=== PATIENT | male | born 1970 | race Caucasian/White ===

== ENCOUNTER 2016-09-07 19:14 | Emergency (ER) | payer BC ==
[2016-09-07 19:35] VITALS: BP 156/93
--- NOTE | 2016-09-07 20:30 | EDM.PDOC ---
ED HPI GENERAL MEDICAL PROBLEM - General Chief Complaint: Skin Complaint Stated Complaint: RASH Time Seen by Provider: 09/07/16 20:14 Source of Information: Reports: Patient History Limitations: Reports: No Limitations - History of Present Illness INITIAL COMMENTS - FREE TEXT/NARRATIVE: 45-year-old male presents for evaluation and treatment of a rash to the right lower chest and upper abdomen. Patient reports that he first developed pain to this area about 1 week ago. Reports that he was concerned that he was experiencing gallbladder attacks. He states about 2 or 3 days ago he then developed a rash. Reports that the rash is very painful and describes as a burning sensation. He reports that at first he thought it was a spider bite as some of the areas blistered. He reports associated symptoms of fatigue, malaise , headaches and body aches. Patient had chickenpox as a child. He has never had shingles. Duration: Week(s): (1) Location: Reports: Abdomen Quality: Reports: Ache, Burning Right Pain Score (Numeric/FACES): 3 - Related Data Allergies Allergy/AdvReac Type Severity Reaction Status Date / Time pork derived (porcine) Allergy Diarrhea Verified 09/07/16 19:36 Home Meds: Home Meds FLUoxetine HCl [Fluoxetine HCl] 40 mg PO DAILY 09/20/15 [History] Omeprazole 1 cap PO DAILY 09/20/15 [History] Aspirin 81 mg PO DAILY #30 tab.chew 09/21/15 [Rx] Atorvastatin. 02/15/16 [History] Gabapentin [Neurontin] 100 mg PO TID #21 cap 09/07/16 [Rx] valACYclovir [Valtrex] 1,000 mg PO TID #21 tablet 09/07/16 [Rx] Past Medical History HEENT History: Reports: Impaired Vision Other HEENT History: Pt hard of hearing, wears hearing aids but are at home Cardiovascular History: Reports: High Cholesterol Other Cardiovascular History: Angioplasty Respiratory History: Reports: Pneumonia, Recurrent Other Respiratory History: pneumonia as a young child Genitourinary History: Reports: UTI, Recurrent Other Genitourinary History: Serious UTI in college Musculoskeletal History: Reports: Other (See Below) Other Musculoskeletal History: ankle surgery Neurological History: Reports: Concussion Psychiatric History: Reports: Aggressive/Hostile Behaviors - Infectious Disease History Infectious Disease History: Reports: Chicken Pox, Measles - Past Surgical History GI Surgical History: Reports: Hernia Repair/Other Social & Family History - Family History Family Medical History: Noncontributory Cardiac: Reports: [place] Other Cardiac Family History: mother had a [place], father with quadrupel bypass surgery Oncologic: Reports: Leukemia Other Oncologic Family History: father and grandpa, many cousins with cancer - Tobacco Use Smoking Status *Q: Never Smoker Years of Tobacco use: 40 Packs/Tins Daily: 0.5 Used Tobacco, but Quit: Yes Month Tobacco Last Used: March Second Hand Smoke Exposure: No - Caffeine Use Caffeine Use: Reports: Soda - Alcohol Use Days Per Week of Alcohol Use: 0 - Recreational Drug Use Recreational Drug Use: No - Living Situation & Occupation Living situation: Reports: Occupation: Employed ED ROS GENERAL - Review of Systems Review Of Systems: See Below Constitutional: Reports: Fever, Malaise, Fatigue, Other (reports body aches) GI/Abdominal: Reports: Abdominal Pain (right upper abdomen) Skin: Reports: Rash (burning, blistering rash to the right upper abdomen and right lower chest) Neurological: Reports: Headache ED EXAM, SKIN/RASH Exam: See Below Exam Limited By: No Limitations General Appearance: Alert, WD/WN, No Apparent Distress Respiratory/Chest: No Respiratory Distress, Lungs Clear Cardiovascular: Normal Peripheral Pulses, Regular Rate, Rhythm, No Murmur Neurological: Alert, Oriented, Normal Cognition Psychiatric: Normal Affect, Normal Mood Skin: Warm, Dry, Zoster-Like Rash (right upper abdomen and right lower chest extending to the right side; follows one dermatome, does not cross the midline; 1 area crusted over 3 over erythematous areas without blisters) Location, Skin: Chest, Abdomen Characteristics: Erythematous Associated features: Warmth, Tenderness, Crusting Course - Vital Signs Last Recorded V/S: Last Vital Signs Temp 37.0 C 09/07/16 19:28 Pulse 71 09/07/16 19:28 Resp 16 09/07/16 19:28 BP 156/93 H 09/07/16 19:28 Pulse Ox 97 09/07/16 19:28 - Re-Assessments/Exams Free Text/Narrative Re-Assessment/Exam: 09/07/16 20:20 The patient's rash and history are consistent with shingles. I will place the patient on Valtrex. Discussed pain management options. He does not want to take any narcotic pain medications. We will try him on a small dose of gabapentin to help with the pain. He can take Tylenol or Motrin as needed for additional pain relief. He is instructed to keep the shingles covered. They're technically contagious until they're crusted over. His father, who has cancer, lives next door. Instructed to be very careful about keeping covered when around him. Discharge instructions her document. Departure - Departure Time of Disposition: 20:24 Disposition: Home, Self-Care 01 Condition: Fair Clinical Impression: Shingles - Discharge Information Prescriptions: Gabapentin [Neurontin] 100 mg PO TID #21 cap valACYclovir [Valtrex] 1,000 mg PO TID #21 tablet Instructions: Shingles, [id number] Referrals: Samara Dickey PA-C [Primary Care Provider] - Forms: ED Department Discharge Additional Instructions: Valacyclovir 1 g 3 times a day for 7 days. This is the antiviral medication. Gabapentin 1 tab 3 times a day for 7 days. This medication is to help with the neuropathic pain. may take [id number] Tylenol or Motrin as needed for additional pain relief. Keep shingles covered. There contagious until they are crusted over. Follow-up with your primary care provider for a recheck in 7-10 days. Please return to the ER if your symptoms change or worsen.
== END 2016-09-07 20:55 | disposition home or self-care (01) ==
LOC: JD.ED 19:14
DX: B02.9 Zoster without complications (principal); E78.00 Pure hypercholesterolemia, unspecified; J18.9 Pneumonia, unspecified organism; Z98.890 Other specified postprocedural states; Z87.891 Personal history of nicotine dependence; Z79.899 Other long term (current) drug therapy; Z91.018 Allergy to other foods
CPT/HCPCS: 99283

== ENCOUNTER 2017-06-10 15:01 | Emergency (ER) | payer BC ==
[2017-06-10] MEDS ORDERED: Ketorolac 60 MG/2 ML SDV IM ONE (15:44)
[2017-06-10] MEDS ORDERED: HYDROmorphone 1 MG/ML Syringe IM ONE (15:44)
[2017-06-10] MEDS ORDERED: Cyclobenzaprine 10 MG Tab PO ONE (15:45)
[2017-06-10] MEDS ORDERED: HYDROmorphone 0.5 MG/0.5 ML SYRINGE ONE (16:07)
[2017-06-10] MEDS ORDERED: HYDROmorphone 0.5 MG/0.5 ML SYRINGE IM ONE (16:10)
--- NOTE | 2017-06-10 17:11 | CR ---
Lumbar spine: AP, lateral and coned-down lateral views centered to the lumbosacral junction were obtained. Comparison: Prior lumbar spine x-ray of 01/14/16. Minimal anterior wedging is noted of T12 and L1 which appears old and is likely developmental. Slight posterior disc space narrowing is noted at T11-T12 and T12-L1. Other disc spaces are preserved. Scattered mild endplate osteophytes are seen. Pedicles as well as transverse and spinous processes are intact. No subluxation or fracture is seen. Impression: 1. Minimal degenerative change. 2. Minimal anterior wedge deformity of T12 and L1 which is felt to be old and developmental. Diagnostic code #2
--- NOTE | 2017-06-10 17:19 | EDM.PDOC ---
ED HPI GENERAL MEDICAL PROBLEM - General Chief Complaint: Back Pain or Injury Stated Complaint: BACK PAIN Time Seen by Provider: 06/10/17 15:23 Source of Information: Reports: Patient History Limitations: Reports: No Limitations - History of Present Illness INITIAL COMMENTS - FREE TEXT/NARRATIVE: The patient presents with low back pain. This started about 1 week ago. He was loading his trailer maged on the back of his trailer when he stepped in a hole and hurt his back. 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 He drove home and came to the ER. He has no numbness or weakness. He has no bowel or bladder problems. He has not had much trouble with his back before. Onset: Sudden Duration: Day(s): Location: Reports: Back (Left side down his leg) Quality: Reports: Sharp Severity: Severe Improves with: Reports: Immobilization Worsens with: Reports: Movement Associated Symptoms: Reports: No Other Symptoms Back Pain Score (Numeric/FACES): 9 - Related Data Allergies Allergy/AdvReac Type Severity Reaction Status Date / Time pork derived (porcine) Allergy Diarrhea Verified 06/10/17 15:11 Home Meds: Home Meds FLUoxetine HCl [Fluoxetine HCl] 40 mg PO DAILY 09/20/15 [History] Omeprazole 1 cap PO DAILY 09/20/15 [History] Aspirin 81 mg PO DAILY #30 tab.chew 09/21/15 [Rx] Atorvastatin. 02/15/16 [History] Gabapentin [Neurontin] 100 mg PO TID #21 cap 09/07/16 [Rx] valACYclovir [Valtrex] 1,000 mg PO TID #21 tablet 09/07/16 [Rx] Cyclobenzaprine [Flexeril] 10 mg PO TID PRN #20 tab 06/10/17 [Rx] Hydrocodone/Acetaminophen [Hydrocodon-Acetaminophen 5-325] 1 - 2 each PO Q6HR PRN #20 tablet 06/10/17 [Rx] Past Medical History HEENT History: Reports: Impaired Vision Other HEENT History: Pt hard of hearing, wears hearing aids but are at home Cardiovascular History: Reports: High Cholesterol Other Cardiovascular History: Angioplasty Respiratory History: Reports: Pneumonia, Recurrent Other Respiratory History: pneumonia as a young child Genitourinary History: Reports: UTI, Recurrent Other Genitourinary History: Serious UTI in college Musculoskeletal History: Reports: Other (See Below) Other Musculoskeletal History: ankle surgery Neurological History: Reports: Concussion Psychiatric History: Reports: Aggressive/Hostile Behaviors - Infectious Disease History Infectious Disease History: Reports: Chicken Pox, Measles - Past Surgical History GI Surgical History: Reports: Hernia Repair/Other Social & Family History - Family History Family Medical History: Noncontributory Cardiac: Reports: [place] Other Cardiac Family History: mother had a [place], father with quadrupel bypass surgery Oncologic: Reports: Leukemia Other Oncologic Family History: father and grandpa, many cousins with cancer - Tobacco Use Smoking Status *Q: Never Smoker Years of Tobacco use: 40 Packs/Tins Daily: 0.5 Used Tobacco, but Quit: Yes Month/Year Tobacco Last Used: March Hand Smoke Exposure: No - Caffeine Use Caffeine Use: Reports: Soda - Alcohol Use Days Per Week of Alcohol Use: 0 - Recreational Drug Use Recreational Drug Use: No - Living Situation & Occupation Living situation: Reports: Occupation: Employed ED ROS GENERAL - Review of Systems Review Of Systems: See Below Constitutional: Reports: No Symptoms HEENT: Reports: No Symptoms Respiratory: Reports: No Symptoms Cardiovascular: Reports: No Symptoms Endocrine: Reports: No Symptoms GI/Abdominal: Reports: No Symptoms : Reports: No Symptoms Musculoskeletal: Reports: Back Pain (Left lower back with radiation to the left leg) ED EXAM,LOWER BACK PAIN/INJURY - Physical Exam Exam: See Below Exam Limited By: No Limitations General Appearance: Alert, No Apparent Distress Eye Exam: Right Eye: Conjunctival Injection Ears: Normal External Exam Nose: Normal Inspection Head: Atraumatic, Normocephalic Neck: Normal Inspection Respiratory/Chest: No Respiratory Distress, Lungs Clear, Normal Breath Sounds Cardiovascular: Regular Rate, Rhythm, No Edema, No Murmur GI/Abdominal: Soft, Non-Tender, No Organomegaly, No Mass Back Exam: Normal Inspection Extremities: Normal Inspection Neurological: Alert, No Motor/Sensory Deficits, Oriented x 3 Course - Vital Signs Last Recorded V/S: Last Vital Signs Temp 97.9 F 06/10/17 15:11 Pulse 90 06/10/17 15:11 Resp 18 06/10/17 15:11 BP 152/95 H 06/10/17 15:11 Pulse Ox 98 06/10/17 15:11 - Orders/Labs/Meds Meds: Medications Discontinued Medications Generic Name Dose Route Start Last Admin Trade Name Freq PRN Reason Stop Dose Admin Cyclobenzaprine HCl 10 mg 06/10/17 15:45 06/10/17 16:07 Flexeril PO 06/10/17 15:46 10 mg ONETIME ONE Administration Hydromorphone HCl 1 mg 06/10/17 15:44 06/10/17 16:14 Dilaudid IM 06/10/17 15:45 Not Given ONETIME ONE Hydromorphone HCl Confirm 06/10/17 16:07 06/10/17 16:12 Dilaudid Administered 06/10/17 16:08 Not Given Dose 1 mg .ROUTE .STK-MED ONE Hydromorphone HCl 1 mg 06/10/17 16:10 06/10/17 16:10 Dilaudid IM 06/10/17 16:11 1 mg ONETIME ONE Administration Ketorolac Tromethamine 60 mg 06/10/17 15:44 06/10/17 16:08 Toradol IM 06/10/17 15:45 60 mg ONETIME ONE Administration - Re-Assessments/Exams Free Text/Narrative Re-Assessment/Exam: 06/10/17 17:17 I ordered an x-ray of his lumbar spine, toradol 60mg IM, dilaudid 1mg IM and flexeril 10mg by mouth. He feels a little better. I will get him on some flexeril and hydrocodone and I have ordered an MRI of his lumbar spine. His x- ray was read by Dr Hoyt and it shows minimal degenerative change. Minimal anterior wedge deformity of T12 and L1 which is felt to be old and developmental. Departure - Departure Time of Disposition: 17:20 Disposition: Home, Self-Care 01 Condition: Good Clinical Impression: Low back pain Qualifiers: Chronicity: acute Back pain laterality: left Sciatica presence: with sciatica Sciatica laterality: sciatica of left side Qualified Code(s): M54.42 - Lumbago with sciatica, left side - Discharge Information Prescriptions: Hydrocodone/Acetaminophen [Hydrocodon-Acetaminophen 5-325] 1 - 2 each PO Q6HR PRN #20 tablet PRN Reason: Pain Cyclobenzaprine [Flexeril] 10 mg PO TID PRN #20 tab PRN Reason: Pain Referrals: PCP,None [Primary Care Provider] - Rubi Morataya [Physician] - 1 Week Additional Instructions: Take the hydrocodone and flexeril as needed for pain. You may also take an antiinflammatory. I have ordered an MRI of you L-spine. Our radiology department will call you with a time. Please return if you are worse. Follow up with Dr Morataya.
[2017-06-10 18:39] VITALS: BP 126/91
== END 2017-06-10 17:40 | disposition home or self-care (01) ==
LOC: JD.ED 15:01
DX: M54.42 Lumbago with sciatica, left side (principal); E78.00 Pure hypercholesterolemia, unspecified; Z91.018 Allergy to other foods; Z79.82 Long term (current) use of aspirin; Z79.899 Other long term (current) drug therapy; Z87.891 Personal history of nicotine dependence
CPT/HCPCS: 72100; 96372; 99283; A9270; J1170; J1885

== ENCOUNTER 2017-09-05 16:51 | Emergency (ER) | payer BC ==
[2017-09-05 17:03] VITALS: BP 155/85
[2017-09-05] MEDS ORDERED: Sodium Chloride 0.9% 10 ML Syringe FLUSH PRN (17:24)
[2017-09-05] MEDS ORDERED: HYDROmorphone 0.5 MG/0.5 ML SYRINGE IVPUSH ONE ×2 (17:24→18:42)
[2017-09-05] MEDS ORDERED: methylPREDNISolone Sodium Succinate 125 MG/2 ML SDV IVPUSH ONE (17:25)
--- NOTE | 2017-09-05 17:25 | EDM.PDOC ---
ED HPI GENERAL MEDICAL PROBLEM - General Chief Complaint: Back Pain or Injury Stated Complaint: Low back pain Time Seen by Provider: 09/05/17 17:10 Source of Information: Reports: Patient, RN Notes Reviewed History Limitations: Reports: No Limitations - History of Present Illness INITIAL COMMENTS - FREE TEXT/NARRATIVE: 46 year old male presents to the ED with complaints of low back pain that radiates down both of his legs. He describes a burning type sensation to his legs with numbness to his right anterior thigh. 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 He had similar symptoms earlier this year and had an MRI which identified the ruptured discs. He saw Dr. Cloud who put him on steroids , anti-inflammatories and pain medication. The patient said he did well with this and had no problems until now. He had no acute injury or new injury. He was riding horse about 1 week ago and subsequently started developing pain to his low back. The pain has progressively worsened over the past week to the point that he's now not able to walk due to pain. He describes muscle spasms and swelling to his left lower back muscles. No loss of bowel or bladder function. No saddle anesthesia. Left Lower Back Pain Score (Numeric/FACES): 10 - Related Data Allergies Allergy/AdvReac Type Severity Reaction Status Date / Time pork derived (porcine) Allergy Diarrhea Verified 06/10/17 15:11 Home Meds: Home Meds FLUoxetine HCl [Fluoxetine HCl] 40 mg PO DAILY 09/20/15 [History] Omeprazole 1 cap PO DAILY 09/20/15 [History] Aspirin 81 mg PO DAILY #30 tab.chew 09/21/15 [Rx] Cyclobenzaprine [Flexeril] 10 mg PO TID PRN #20 tab 06/10/17 [Rx] Acetaminophen/HYDROcodone [[place] 325-5 MG] 1 - 2 tab PO Q4H PRN #25 tablet 09/05 [Rx] Cyclobenzaprine [Flexeril] 10 mg PO TID PRN #30 tab 09/05/17 [Rx] Evolocumab [Repatha Pushtronex] 1 injection INJECT ASDIRECTED 09/05/17 [History] predniSONE [Prednisone] 20 mg PO ASDIRECTED #24 tablet 09/05/17 [Rx] Past Medical History HEENT History: Reports: Impaired Vision Other HEENT History: Pt hard of hearing, wears hearing aids but are at home Cardiovascular History: Reports: High Cholesterol Other Cardiovascular History: Angioplasty Respiratory History: Reports: Pneumonia, Recurrent Other Respiratory History: pneumonia as a young child Genitourinary History: Reports: UTI, Recurrent Other Genitourinary History: Serious UTI in college Musculoskeletal History: Reports: Other (See Below) Other Musculoskeletal History: ankle surgery Neurological History: Reports: Concussion Psychiatric History: Reports: Aggressive/Hostile Behaviors - Infectious Disease History Infectious Disease History: Reports: Chicken Pox, Measles - Past Surgical History GI Surgical History: Reports: Hernia Repair/Other Social & Family History - Family History Family Medical History: Noncontributory Cardiac: Reports: [place] Other Cardiac Family History: mother had a [place], father with quadrupel bypass surgery Oncologic: Reports: Leukemia Other Oncologic Family History: father and grandpa, many cousins with cancer - Caffeine Use Caffeine Use: Reports: Soda - Living Situation & Occupation Living situation: Reports: Occupation: Employed ED ROS GENERAL - Review of Systems Review Of Systems: See Below Constitutional: Reports: No Symptoms. Denies: Fever, Chills Musculoskeletal: Reports: Back Pain, Muscle Pain Neurological: Reports: Numbness, Difficulty Walking. Denies: Weakness ED EXAM,LOWER BACK PAIN/INJURY - Physical Exam Exam: See Below Exam Limited By: No Limitations General Appearance: Alert, WD/WN, Moderate Distress Respiratory/Chest: No Respiratory Distress, Lungs Clear Cardiovascular: Normal Peripheral Pulses, Regular Rate, Rhythm Back Exam: Muscle Spasm (low back ), Paraspinal Tenderness, Other (No crepitus or bony step offs. Minimal pain with palpation to lumbar spine. No pain with palpation to the SI joints. Patient is guraded upon exam. ). No: CVA Tenderness (L), CVA Tenderness (R), Vertebral Tenderness Neurological: Alert, Normal Dorsiflexion, Normal Plantar Flexion, Normal Reflexes, No Motor/Sensory Deficits, Straight Leg Raise (L), Straight Leg Raise (R). No: Saddle Anesthesia Skin Exam: Warm, Dry, Intact Course - Vital Signs Last Recorded V/S: Last Vital Signs Temp 98.6 F 09/05/17 17:02 Pulse 85 09/05/17 17:02 Resp 20 09/05/17 17:02 BP 155/85 H 09/05/17 17:02 Pulse Ox 99 09/05/17 17:02 - Orders/Labs/Meds Orders: Active Orders 24 hr Category Date Time Status Peripheral IV Care [RC] . DIRECTED Care 09/05/17 17:24 Active Peripheral IV Insertion Adult [OM.PC] Stat Oth 09/05/17 17:24 Ordered Meds: Medications Discontinued Medications Generic Name Dose Route Start Last Admin Trade Name Freq PRN Reason Stop Dose Admin Cyclobenzaprine HCl 10 mg 09/05/17 19:55 09/05/17 20:00 Flexeril PO 09/05/17 19:56 10 mg ONETIME ONE Administration Diazepam 5 mg 09/05/17 17:24 09/05/17 17:40 Valium IVPUSH 09/05/17 17:25 5 mg ONETIME ONE Administration Diazepam 5 mg 09/05/17 18:42 09/05/17 19:01 Valium IV 09/05/17 18:43 5 mg ONETIME ONE Administration Hydromorphone HCl 0.5 mg 09/05/17 17:24 09/05/17 17:41 Dilaudid IVPUSH 09/05/17 17:25 0.5 mg ONETIME ONE Administration Hydromorphone HCl 0.5 mg 09/05/17 18:42 09/05/17 19:01 Dilaudid IVPUSH 09/05/17 18:43 0.5 mg ONETIME ONE Administration Methylprednisolone Sodium Succinate 125 mg 09/05/17 17:25 09/05/17 17:40 Solu-Medrol IVPUSH 09/05/17 17:26 125 mg ONETIME ONE Administration Sodium Chloride 10 ml 09/05/17 17:24 09/05/17 17:41 Saline Flush FLUSH 10 ml ASDIRECTED PRN Administration Keep Vein Open - Re-Assessments/Exams Free Text/Narrative Re-Assessment/Exam: Reviewed MRI from May 2017. Patient has degenerative changes with bulging disc to L4-L5. Patient was treated with Dilaudid, Valium and Solu-medrol IV. He had moderate improvement with this. He continued to have muscle spams which seem to be the primary source of his pain. He has a recent MRI with no new injury, therefore repeat imaging was not indicated today. He was given oral Flexeril prior to discharge. Discharged home with [place], Flexeril and Prednisone. Educated on ER return precautions. Instructed to f/u with Dr. Cloud next week. Departure - Departure Time of Disposition: 20:05 Disposition: Home, Self-Care 01 Condition: Fair Clinical Impression: Low back pain Qualifiers: Chronicity: acute Back pain laterality: left Sciatica presence: with sciatica Sciatica laterality: sciatica of left side Qualified Code(s): M54.42 - Lumbago with sciatica, left side - Discharge Information Prescriptions: Acetaminophen/HYDROcodone [[place] 325-5 MG] 1 - 2 tab PO Q4H PRN #25 tablet PRN Reason: Pain Cyclobenzaprine [Flexeril] 10 mg PO TID PRN #30 tab PRN Reason: Muscle Spasm predniSONE [Prednisone] 20 mg PO ASDIRECTED #24 tablet Instructions: Back Pain, Adult Referrals: Samara Dickey PA-C [Ordering Only Provider] - Forms: ED Department Discharge Additional Instructions: Heating pad to low back Gentle stretching Hot baths if you're able. Prednisone 60mg daily for 4 days, then 40mg for 4 days, 20mg for 4 days then stop Start anti-inflammatories (Aleve or Ibuprofen) once you complete the prednisone Flexeril 1 tab every 8 hours as needed for muscle spasm Hydrocodone/apap 1-2 tabs every 4-6 hours for pain Return to ER with worsening symptoms, loss of bowel or bladder function, or numbness to your buttocks or groin region. Follow-up with Dr. Cloud next week - My Orders Last 24 Hours: My Active Orders 09/05/17 17:24 Peripheral IV Care [RC] . DIRECTED Peripheral IV Insertion Adult [OM.PC] Stat - Assessment/Plan Last 24 Hours: My Active Orders 09/05/17 17:24 Peripheral IV Care [RC] . DIRECTED Peripheral IV Insertion Adult [OM.PC] Stat
[2017-09-05] MEDS ORDERED: Cyclobenzaprine 10 MG Tab PO ONE (19:55)
== END 2017-09-05 20:18 | disposition home or self-care (01) ==
LOC: JD.ED 16:51
DX: M54.42 Lumbago with sciatica, left side (principal); Z91.018 Allergy to other foods; Z79.899 Other long term (current) drug therapy; Z79.82 Long term (current) use of aspirin
CPT/HCPCS: 96374; 96375; 96376; 99283; A9270; J1170; J2930; J3360; J7050; 99284

== ENCOUNTER 2019-01-17 11:33 | Emergency (ER) | payer BC ==
[2019-01-17 11:47] VITALS: BP 142/87; PULSE 81
--- NOTE | 2019-01-17 12:02 | EDM.PDOC ---
ED HPI GENERAL MEDICAL PROBLEM - General Chief Complaint: Back Pain or Injury Stated Complaint: BACK PAIN Time Seen by Provider: 01/17/19 11:45 Source of Information: Reports: Patient History Limitations: Reports: No Limitations - History of Present Illness INITIAL COMMENTS - FREE TEXT/NARRATIVE: 48-year-old male presents to the ED due to acute flareup of diffuse low back pain. She had a discectomy he believes at L4-L5 and L5-S1 levels done at [facility] neurology clinic in [place] about a year ago. This relieved his pain in his right lower extremity. Currently having some pain in the left lower extremity radiating below the knee that he awoke with this morning. He has had gradually worsening back pain over the last week. Still has good control of bowel and bladder. The last few days seems to be getting worse instead of better. No falls or injuries that he is aware of. 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 Onset: Gradual Onset Date: 01/11/19 Duration: Day(s):, Getting Worse Location: Reports: Back (Diffuse low back pain both sides with more radiculopathy into the left buttock and leg.), Radiates to Quality: Reports: Ache, Burning, Sharp, Stabbing (Left buttock and leg.), Throbbing Severity: Moderate Improves with: Reports: Rest (Lying flat helps the best.) Worsens with: Reports: Other, Movement Context: Reports: Other (Spontaneous occurrence. No good reason.). Denies: Activity, Exercise (Standing fully erect makes the pain worse.), Lifting, Sick Contact, Trauma Associated Symptoms: Reports: No Other Symptoms Treatments CONVERTER SKIMMER: Reports: Other (see below) Other Treatments CONVERTER SKIMMER: motrin Lower Back Pain Score (Numeric/FACES): 8 - Related Data Allergies Allergy/AdvReac Type Severity Reaction Status Date / Time pork derived (porcine) AdvReac Diarrhea Verified 02/26/18 09:21 Home Meds: Home Meds FLUoxetine HCl [Fluoxetine HCl] 40 mg PO DAILY 09/20/15 [History] Omeprazole 20 mg PO DAILY 09/20/15 [History] Aspirin 81 mg PO DAILY #30 tab.chew 09/21/15 [Rx] Diclofenac Sodium [Voltaren] 75 mg PO BIDMEALS #20 tab.cr 01/17/19 [Rx] oxyCODONE HCl/Acetaminophen [Percocet 5-325 mg Tablet] 1 - 2 each PO Q4H PRN # 20 tablet 01/17/19 [Rx] predniSONE 20 mg PO ASDIRECTED #15 tab 01/17/19 [Rx] Past Medical History HEENT History: Reports: Impaired Vision Other HEENT History: Pt hard of hearing, wears hearing aids but are at home Cardiovascular History: Reports: High Cholesterol Other Cardiovascular History: Angioplasty Respiratory History: Reports: Pneumonia, Recurrent Other Respiratory History: pneumonia as a young child Gastrointestinal History: Reports: GERD Genitourinary History: Reports: UTI, Recurrent Other Genitourinary History: Serious UTI in college Musculoskeletal History: Reports: Back Pain, Chronic, Other (See Below) Other Musculoskeletal History: ankle surgery;disectomy Neurological History: Reports: Concussion Psychiatric History: Reports: Aggressive/Hostile Behaviors Other Psychiatric History: fluoxetine daily - Infectious Disease History Infectious Disease History: Reports: Chicken Pox, Measles - Past Surgical History GI Surgical History: Reports: Hernia Repair/Other Dermatological Surgical History: Reports: None Social & Family History - Family History Family Medical History: Noncontributory Cardiac: Reports: MD Other Cardiac Family History: mother had a MD, father with quadrupel bypass surgery Oncologic: Reports: Leukemia Other Oncologic Family History: father and grandpa, many cousins with cancer - Tobacco Use Smoking Status *Q: Current Every Day Smoker Years of Tobacco use: 45 Packs/Tins Daily: 1 - Caffeine Use Caffeine Use: Reports: Coffee, Soda - Recreational Drug Use Recreational Drug Use: No - Living Situation & Occupation Living situation: Reports: Occupation: Employed [facility] [employer] [facility] - Review of Systems Review Of Systems: See Below Constitutional: Reports: Fatigue. Denies: Fever, Chills, Malaise HEENT: Reports: No Symptoms (From not sleeping very well.) Respiratory: Reports: No Symptoms Cardiovascular: Reports: No Symptoms Endocrine: Reports: No Symptoms GI/Abdominal: Reports: Other (Gastroesophageal reflux controlled with Prilosec daily.). Denies: Constipation : Reports: No Symptoms Musculoskeletal: Reports: Back Pain, Leg Pain (See history of present illness.) Skin: Reports: No Symptoms ( Left leg pain referred from the back.) Neurological: Reports: No Symptoms Psychiatric: Reports: Depression Hematologic/Lymphatic: Reports: No Symptoms Immunologic: Reports: No Symptoms (Controlled with Prozac daily) ED EXAM,LOWER BACK PAIN/INJURY - Physical Exam Exam: See Below Exam Limited By: No Limitations General Appearance: Alert, WD/WN, Moderate Distress, Other (Vital signs show temperature 37.1. Pulse is 81 and sinus respiratory is 20 BP 142/87 sats are 97 % on room air.) Eye Exam: Bilateral Eye: Normal Inspection (Normal color) GI/Abdominal: Normal Bowel Sounds, Soft, Non-Tender, No Organomegaly, No Abnormal Bruit, No Mass, Pelvis Stable, Other (Male) Exam: No Hernia (Benign abdomensurgical scars) Back Exam: Normal Inspection, Decreased Range of Motion, Paraspinal Tenderness, Vertebral Tenderness (More spasm on the right side as compared to the left. He has pain starting at L3-L4 facet joints bilaterally again worse on the right side as compared to the left.), Other (Both SI joints are very tender to palpation as well.). No: Full Range of Motion, CVA Tenderness (L), CVA Tenderness (R) Extremities: Normal Inspection, Normal Range of Motion, Non-Tender, No Pedal Edema Neurological: Alert, Normal Mood/Affect, Normal Dorsiflexion, CN II-XII Intact, Normal Plantar Flexion, Normal Gait, Normal Reflexes, No Motor/Sensory Deficits , Oriented x 3, Straight Leg Raise (L), Straight Leg Raise (R) (60 without any evidence of nerve root impingement), Other ( to degrees without any nerve root impingement or low back pain. great toe flexures intact with no weakness. ) DTR - Lower Extremities: 2+: Knee (R), Knee (L), Ankle (R), Ankle (L) Psychiatric: Normal Affect, Normal Mood Skin Exam: Warm, Dry, Intact, Normal Color, No Rash Course - Vital Signs Last Recorded V/S: Last Vital Signs Temp 37.1 C 01/17/19 11:45 Pulse 81 01/17/19 11:45 Resp 20 01/17/19 11:45 BP 142/87 H 01/17/19 11:45 Pulse Ox 97 01/17/19 11:45 - Radiology Interpretation Free Text/Narrative:: 48-year-old male presents to the ED with an acute flareup of low back pain. Clinically does not have evidence of a nerve root entrapment. These had previous surgery for disc herniation at L4-L5 and L5-S1 about a year ago. Patient reveals marked facet joint tenderness from L3-L5 bilaterally worse worse on the right side as compared to the left. There is also bilateral inflammation of the sacroiliac joints. Plan he'll be treated conservatively with prednisone 20 mg twice a day for 5 days and then once in the morning only for another 5 days. Voltaren 75 mg twice daily for 8 days to reduce pain and inflammation. Percocet tabs 07/24/24 one or 2 at bedtime to help sleep 20 tablets provided. If he's not markedly improved in 5-7 days time he is to be reviewed and imaging would be indicated. Departure - Departure Time of Disposition: 11:57 Disposition: Home, Self-Care 01 Condition: Fair Clinical Impression: Acute mechanical low back pain with duration of less than six weeks, Bilateral sacroiliitis - Discharge Information *PRESCRIPTION DRUG MONITORING PROGRAM REVIEWED*: Not Applicable *COPY OF PRESCRIPTION DRUG MONITORING REPORT IN PATIENT ODALYS: Not Applicable Prescriptions: Diclofenac Sodium [Voltaren] 75 mg PO BIDMEALS #20 tab.cr oxyCODONE HCl/Acetaminophen [Percocet 5-325 mg Tablet] 1 - 2 each PO Q4H PRN # 20 tablet PRN Reason: pain relief. predniSONE 20 mg PO ASDIRECTED #15 tab Referrals: PCP,None [Primary Care Provider] - Forms: ED Department Discharge Additional Instructions: Evaluation the emergency room today in regards to acute exacerbation of low back pain. History of previous disc problems with primary set primarily sciatic in the right leg. We did by disc surgery probably at L4-L5 and L5-S1 levels about a year ago at [facility] neurology [place] in [place]. Over the last week you have developed increased low back pain and much worse yesterday and today but barely being able to get out of bed or standing erect. Examination the ER shows marked paraspinal muscle spasm mostly from facet joint inflammation in the lower 3 levels of your back. Is also significant pain on palpation of both sacroiliac joints in the buttock. Straight leg raising is negative bilaterally with no indication of nerve root entrapment. I.e. no evidence of disc herniation at this time. Facet joints can become inflamed like a ankle sprain causing significant paraspinal muscle spasm and stiffness and soreness. Treatment is to be Voltaren 75 mg twice daily with food for the next 10 days. Deltasone on prednisone 20 mg with breakfast and supper for 5 days then once in the morning only for another 5 days. Take the first one with dinner today and the second one before bed tonight with a little something to eat. These take about a day and a half to 2 days to become effective in relieving pain and inflammation. Location is Percocet tablet 5/325 mg ideally one or 2 tablets before bed to aid sleep until the back pain settles down. If not markedly improved in 5-7 days then imaging of your lower back would be indicated. Activity as tolerated.
== END 2019-01-17 12:15 | disposition home or self-care (01) ==
LOC: JD.ED 11:33
DX: M46.1 Sacroiliitis, not elsewhere classified (principal); E78.00 Pure hypercholesterolemia, unspecified; K21.9 Gastro-esophageal reflux disease without esophagitis; F17.210 Nicotine dependence, cigarettes, uncomplicated; Z91.018 Allergy to other foods; Z79.899 Other long term (current) drug therapy; Z79.82 Long term (current) use of aspirin
CPT/HCPCS: 99283

== ENCOUNTER 2019-04-13 16:44 | Emergency (ER) | payer BC ==
[2019-04-13] MEDS ORDERED: Diphtheria,Pertussis(Acell),Tetanus Vaccine 0.5 ML Syringe IM ONE (17:14)
[2019-04-13] MEDS ORDERED: Acetaminophen/oxyCODONE 325-5 MG Tab PO ONE (17:15)
[2019-04-13] MEDS ORDERED: Ibuprofen 800 MG Tab PO ONE (17:15)
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
[2019-04-13 18:33] VITALS: BP 140/100; PULSE 82
== END 2019-04-13 18:10 | disposition home or self-care (01) ==
LOC: JD.ED 16:44
DX: T20.10XA Burn of first degree of head, face, and neck, unspecified site, initial encounter (principal); T20.14XA Burn of first degree of nose (septum), initial encounter; T20.12XA Burn of first degree of lip(s), initial encounter; T20.13XA Burn of first degree of chin, initial encounter; T20.16XA Burn of first degree of forehead and cheek, initial encounter; T26.01XA Burn of right eyelid and periocular area, initial encounter; Z23 Encounter for immunization; E78.00 Pure hypercholesterolemia, unspecified; K21.9 Gastro-esophageal reflux disease without esophagitis; Z91.048 Other nonmedicinal substance allergy status; Z79.899 Other long term (current) drug therapy; Z79.82 Long term (current) use of aspirin; W40.8XXA Explosion of other specified explosive materials, initial encounter; Y92.009 Unspecified place in unspecified non-institutional (private) residence as the place of occurrence of the external cause
CPT/HCPCS: 16000; 90471; 90715; 99283; A9270

== ENCOUNTER 2019-12-25 20:12 | Emergency (ER) | payer BC ==
[2019-12-25 20:33] VITALS: BP 158/92; PULSE 85
[2019-12-25] MEDS ORDERED: Sodium Chloride 0.9% 10 ML Syringe FLUSH PRN (20:40)
[2019-12-25] MEDS ORDERED: Pantoprazole 40 MG Vial IVPUSH ONE (20:40)
[2019-12-25] MEDS ORDERED: Alum Hydrox/Mag Hydrox/Simeth 30 ML, Lidocaine 2% 15 ML PO ONE ×2 (20:40)
--- NOTE | 2019-12-25 20:49 | EDM.PDOC ---
ED HPI GENERAL MEDICAL PROBLEM - General Chief Complaint: Chest Pain Stated Complaint: LEFT SIDE BURNING AND CHEST PAIN Time Seen by Provider: 12/25/19 20:31 Source of Information: Reports: Patient History Limitations: Reports: No Limitations - History of Present Illness INITIAL COMMENTS - FREE TEXT/NARRATIVE: Patient is a 49-year-old male with history of hypercholesteremia, GERD, depression, obesity, and family history of first-degree relative with heart disease mom at age 48 with HI requiring stents. He presents to the ED complaining of a 2-day history of burning sensation to his chest with increasing pain noted to the left pec region just below the nipple. Pain is worse with taking a deep breath. He has a history of acid reflux but denies it being related to acid reflux. He takes omeprazole daily. [place] with [place] away from everybody for the past month. There has been no COVID exposure. States approximately 2 days ago he awoke to use the bathroom at night felt sweaty took his temperature and was 100.2. He had no other symptoms. The following day he was fine. He is concerned that he may be having a heart attack or a PE. There is been no swelling or pain to his lower extremities. No history of hemoptysis. No recent surgeries or immobilization. Patient takes fluoxetine, omeprazole and aspirin. He has no primary care provider locally. Left Chest Pain Score (Numeric/FACES): 4 - Related Data Allergies Allergy/AdvReac Type Severity Reaction Status Date / Time pork derived (porcine) AdvReac Diarrhea Verified 12/25/19 20:32 Home Meds: Home Meds FLUoxetine HCl [Fluoxetine HCl] 40 mg PO DAILY 09/20/15 [History] Omeprazole 20 mg PO DAILY 09/20/15 [History] Aspirin 81 mg PO DAILY #30 tab.chew 09/21/15 [Rx] Acetaminophen/HYDROcodone [[place] 325-5 MG] 1 tab PO Q6H PRN #10 tablet 12/25/19 [Rx] dexAMETHasone [Dexamethasone] 4 mg PO BID #10 tab 12/25/19 [Rx] Past Medical History HEENT History: Reports: Impaired Vision Other HEENT History: Pt hard of hearing, wears hearing aids but are at home Cardiovascular History: Reports: High Cholesterol Other Cardiovascular History: Angioplasty Respiratory History: Reports: Pneumonia, Recurrent Other Respiratory History: pneumonia as a young child Gastrointestinal History: Reports: GERD Genitourinary History: Reports: UTI, Recurrent Other Genitourinary History: Serious UTI in college Musculoskeletal History: Reports: Back Pain, Chronic, Other (See Below) Other Musculoskeletal History: ankle surgery;disectomy Neurological History: Reports: Concussion Psychiatric History: Reports: Aggressive/Hostile Behaviors Other Psychiatric History: fluoxetine daily - Infectious Disease History Infectious Disease History: Reports: Chicken Pox, Measles - Past Surgical History GI Surgical History: Reports: Hernia Repair/Other Dermatological Surgical History: Reports: None Social & Family History - Family History Family Medical History: Noncontributory Cardiac: Reports: HI Other Cardiac Family History: mother had a HI, father with quadrupel bypass surgery Oncologic: Reports: Leukemia Other Oncologic Family History: father and grandpa, many cousins with cancer - Caffeine Use Caffeine Use: Reports: Coffee, Soda - Living Situation & Occupation Living situation: Reports: Occupation: Employed ED ROS GENERAL - Review of Systems Review Of Systems: Comprehensive ROS is negative, except as noted in HPI. ED EXAM, GENERAL - Physical Exam Exam: See Below Exam Limited By: No Limitations General Appearance: Alert, WD/WN, No Apparent Distress Eye Exam: Bilateral Eye: Normal Inspection Ears: Hearing Grossly Normal Nose: Normal Inspection Throat/Mouth: Normal Voice, No Airway Compromise Head: Atraumatic, Normocephalic Neck: Normal Inspection, Supple Respiratory/Chest: No Respiratory Distress, Lungs Clear, Normal Breath Sounds, No Accessory Muscle Use, Other (Mild tenderness just below the left nipple. No bruising, swelling, redness, wounds present.) Cardiovascular: Normal Peripheral Pulses, Regular Rate, Rhythm, No Murmur Peripheral Pulses: 2+: Radial (L), Radial (R) GI/Abdominal: Normal Bowel Sounds, Soft, Non-Tender, No Organomegaly, No Distention Back Exam: Normal Inspection, Full Range of Motion. No: CVA Tenderness (L), CVA Tenderness (R) Extremities: Normal Inspection, Normal Range of Motion, Non-Tender, No Pedal Edema Neurological: Alert, Oriented, Normal Cognition, No Motor/Sensory Deficits Psychiatric: Normal Affect, Normal Mood Skin Exam: Warm, Dry, Intact, Normal Color Course - Vital Signs Last Recorded V/S: Last Vital Signs Temp 98.7 F 12/25/19 20:27 Pulse 85 12/25/19 20:27 Resp 19 12/25/19 20:27 BP 158/92 H 12/25/19 20:27 Pulse Ox 96 12/25/19 20:27 - Orders/Labs/Meds Orders: Active Orders 24 hr Category Date Time Status EKG Documentation Completion [RC] STAT Care 12/25/19 20:20 Active Peripheral IV Care [RC] . DIRECTED Care 12/25/19 20:40 Active Chest 1V Frontal [CR] Stat Exams 12/25/19 20:40 Taken Sodium Chloride 0.9% [Saline Flush] Med 12/25/19 20:40 Active 10 ml FLUSH ASDIRECTED PRN Peripheral IV Insertion Adult [OM.PC] Routine Oth 12/25/19 20:40 Ordered Medication Orders Sodium Chloride (Saline Flush) 10 ml FLUSH ASDIRECTED PRN PRN Reason: Keep Vein Open Last Admin: 12/25/19 21:36 Dose: 10 ml Documented by: DORETHA Labs: Laboratory Tests 12/25/19 12/25/19 12/25/19 Range/Units 21:15 21:15 21:15 WBC 5.85 (4.23-9.07) K/mm3 RBC 5.44 (4.63-6.08) M/mm3 Hgb 15.5 (13.7-17.5) gm/dl Hct 45.1 (40.1-51.0) % MCV 82.9 (79.0-92.2) fl MCH 28.5 (25.7-32.2) pg MCHC 34.4 (32.2-35.5) g/dl RDW Std Deviation 39.7 (35.1-43.9) fL Plt Count 240 (163-337) K/mm3 MPV 8.4 L (9.4-12.3) fl Neutrophils % (Manual) 61 H (40-60) % Band Neutrophils % 1 (0-10) % Lymphocytes % (Manual) 26 (20-40) % Atypical Lymphs % 0 % Monocytes % (Manual) 10 (2-10) % Eosinophils % (Manual) 2 (0.8-7.0) % Basophils % (Manual) 0 L (0.2-1.2) Platelet Estimate Adequate RBC Morph Comment Normal PT 10.3 (9.7-11.7) SECONDS INR 0.96 APTT 25 (22-31) SECONDS D-Dimer, Quantitative 0.32 (0.19-0.50) mg/L Sodium 139 (136-145) mEq/L Potassium 3.7 (3.5-5.1) mEq/L Chloride 103 (98-107) mEq/L Carbon Dioxide 27 (21-32) mEq/L Anion Gap 12.7 (5-15) BUN 19 H (7-18) mg/dL Creatinine 1.4 H (0.7-1.3) mg/dL Est Cr Clr Drug Dosing 9.72 mL/min Estimated GFR (MDRD) 54 (>60) mL/min BUN/Creatinine Ratio 13.6 L (14-18) Glucose 148 H (74-106) mg/dL Calcium 8.6 (8.5-10.1) mg/dL Total Bilirubin 0.5 (0.2-1.0) mg/dL AST 20 (15-37) U/L ALT 42 (16-63) U/L Alkaline Phosphatase 96 (46-116) U/L C-Reactive Protein 2.0 H* (<1.0) mg/dL Total Protein 7.2 (6.4-8.2) g/dl Albumin 3.3 L (3.4-5.0) g/dl Globulin 3.9 gm/dL Albumin/Globulin Ratio 0.9 L (1-2) SARS-CoV-2 RNA (DEVEN) (NEGATIVE) 12/25/19 Range/Units 21:47 WBC (4.23-9.07) K/mm3 RBC (4.63-6.08) M/mm3 Hgb (13.7-17.5) gm/dl Hct (40.1-51.0) % MCV (79.0-92.2) fl MCH (25.7-32.2) pg MCHC (32.2-35.5) g/dl RDW Std Deviation (35.1-43.9) fL Plt Count (163-337) K/mm3 MPV (9.4-12.3) fl Neutrophils % (Manual) (40-60) % Band Neutrophils % (0-10) % Lymphocytes % (Manual) (20-40) % Atypical Lymphs % % Monocytes % (Manual) (2-10) % Eosinophils % (Manual) (0.8-7.0) % Basophils % (Manual) (0.2-1.2) Platelet Estimate RBC Morph Comment PT (9.7-11.7) SECONDS INR APTT (22-31) SECONDS D-Dimer, Quantitative (0.19-0.50) mg/L Sodium (136-145) mEq/L Potassium (3.5-5.1) mEq/L Chloride (98-107) mEq/L Carbon Dioxide (21-32) mEq/L Anion Gap (5-15) BUN (7-18) mg/dL Creatinine (0.7-1.3) mg/dL Est Cr Clr Drug Dosing mL/min Estimated GFR (MDRD) (>60) mL/min BUN/Creatinine Ratio (14-18) Glucose (74-106) mg/dL Calcium (8.5-10.1) mg/dL Total Bilirubin (0.2-1.0) mg/dL AST (15-37) U/L ALT (16-63) U/L Alkaline Phosphatase (46-116) U/L C-Reactive Protein (<1.0) mg/dL Total Protein (6.4-8.2) g/dl Albumin (3.4-5.0) g/dl Globulin gm/dL Albumin/Globulin Ratio (1-2) SARS-CoV-2 RNA (DEVEN) Positive H (NEGATIVE) Meds: Medications Generic Name Dose Route Start Last Admin Trade Name Mateoq PRN Reason Stop Dose Admin Sodium Chloride 10 ml 12/25/19 20:40 12/25/19 21:36 Saline Flush FLUSH 10 ml ASDIRECTED PRN Administration Keep Vein Open Discontinued Medications Generic Name Dose Route Start Last Admin Trade Name Andres PRN Reason Stop Dose Admin Aspirin 243 mg 12/25/19 20:50 12/25/19 21:30 Aspirin PO 12/25/19 20:51 243 mg ONETIME ONE Administration Al Hydroxide/Mg Hydroxide 30 0 ml 12/25/19 20:40 12/25/19 21:30 ml/ Lidocaine HCl 15 ml PO 12/25/19 20:41 45 ml ONETIME ONE Administration Pantoprazole Sodium 40 mg 12/25/19 20:40 12/25/19 21:36 Protonix Iv IVPUSH 12/25/19 20:41 40 mg ONETIME ONE Administration - Re-Assessments/Exams Free Text/Narrative Re-Assessment/Exam: EKG sinus rhythm at a rate 82 with a QTC of 436 and MN interval of 166. Low voltage within the precordial leads. No acute ST changes noted. Initial vital signs are stable. His pain to the left pack increased with taking a deep breath and palpation. No findings for bony abnormalities or wound or rash or wounds. Describes as a burning sensation but notes this is not related to acid reflux. He is concerned this pain is related to a PE or a HI. He has no pain with exertion. Symptoms are constant and wax and wane in intensity. No hemoptysis. No recent fever. No shortness of breath at this time. Initial labs and studies will include: CBC, CHEM 14, coag studies, troponin, CXR, and ddimer. IV will be established with Protonix IV and also GI cocktail. 12/25/19 21:42 of the chest revealed new bilateral alveolar opacity suspicious for pneumonia. Patient will be placed in contact precautions. COVID test will be obtained. Labs pending. Labs reviewed: CBC essentially normal. Sodium 139, potassium 3.7, CO2 27, AG 12.7, creatinine 1.4, LFTs normal, total bilirubin normal, CRP 2.0. His COVID test to come back positive. He is not hypoxic. Not short of breath. His d-dimer was negative. I will treat him with oral steroids for the next 5 days. He will be provided an inhaler as well. He will be instructed to follow CDC guidelines for quarantining. Return precautions discussed with patient. Patient voiced his understanding and had no further questions or concerns. Departure - Departure Time of Disposition: 22:58 Disposition: Home, Self-Care 01 Condition: Good Clinical Impression: COVID-19 Prescriptions: dexAMETHasone [Dexamethasone] 4 mg PO BID #10 tab Acetaminophen/HYDROcodone [[place] 325-5 MG] 1 tab PO Q6H PRN #10 tablet PRN Reason: Pain (Severe 7-10) Instructions: COVID-19 Frequently Asked Questions, COVID-19: How to Protect Yourself and Others - CDC, Prevent the Spread of COVID-19 if You Are Sick - [facility] Referrals: PCP,None [Primary Care Provider] - Forms: ED Department Discharge Additional Instructions: Labs have indicated you are positive for COVID-19. Please follow CDC guidelines for quarantining and social distancing. Take the dexamethasone 4 mg 1 tab twice a day for 5 days. Use Proventil inhaler as instructed for shortness of breath, cough, wheezing. Suggest taking Mucinex 100 mg, 1 tab twice a day for 7 days. Push the fluids. Ensure adequate rest. For mild to moderate pain utilize ibuprofen and Tylenol in alternating fashion. For severe pain using [place] as directed. Do not take [place] and Tylenol together. Do not operate and heavy equipment or vehicles while taking the [place]. Do not drive this evening since receiving a sedative medication. Sepsis Event Note (ED) - Evaluation Sepsis Screening Result: No Definite Risk - Focused Exam Vital Signs: Vital Signs Temp Pulse Resp BP Pulse Ox 12/25/19 20:27 98.7 F 85 19 158/92 H 96 - My Orders Last 24 Hours: My Active Orders 12/25/19 20:20 EKG Documentation Completion [RC] STAT 12/25/19 20:40 Peripheral IV Care [RC] . DIRECTED Chest 1V Frontal [CR] Stat Sodium Chloride 0.9% [Saline Flush] 10 ml FLUSH ASDIRECTED PRN Peripheral IV Insertion Adult [OM.PC] Routine - Assessment/Plan Last 24 Hours: My Active Orders 12/25/19 20:20 EKG Documentation Completion [RC] STAT 12/25/19 20:40 Peripheral IV Care [RC] . DIRECTED Chest 1V Frontal [CR] Stat Sodium Chloride 0.9% [Saline Flush] 10 ml FLUSH ASDIRECTED PRN Peripheral IV Insertion Adult [OM.PC] Routine
[2019-12-25] MEDS ORDERED: Aspirin 81 MG Tab.Chew PO ONE (20:50)
[2019-12-25] MEDS ORDERED: Dexamethasone 4 MG Tab PO ONE (22:57)
[2019-12-25] MEDS ORDERED: Albuterol 6.7 GM Inhaler INH ONE (22:57)
--- NOTE | 2020-01-31 16:32 | CR ---
PROCEDURE INFORMATION: Exam: XR Chest, 1 View Exam date and time: 12/25/2019 8:35 PM Age: 49 years old Clinical indication: Chest pain; Type not specified TECHNIQUE: Imaging protocol: XR of the chest Views: 1 view. COMPARISON: DX Chest 2V 04/22/2019 3:32 PM FINDINGS: Lungs: There are bilateral patchy alveolar opacities, most pronounced in the right upper lobe. These are new compared with the prior study. Pleural space: There are no pleural effusions. There is no pneumothorax. Heart/Mediastinum: The cardiac silhouette appears mildly enlarged but is accentuated by technique and positioning. The mediastinal and hilar contours are normal. The pulmonary vessels are normal. Bones/joints: No acute osseous pathology is identified. IMPRESSION: New bilateral alveolar opacities suspicious for pneumonia. Thank you for allowing us to participate in the care of your patient. Dictated and Authenticated by: Nadja Sierra MD 01/31/2020 5:21 PM Central Time ([place] & [place]) [place]
== END 2019-12-25 23:30 | disposition home or self-care (01) ==
LOC: JD.ED 20:12
DX: U07.1 COVID-19 (principal); K21.9 Gastro-esophageal reflux disease without esophagitis; F32.9 Major depressive disorder, single episode, unspecified; E66.9 Obesity, unspecified; Z91.018 Allergy to other foods; Z79.82 Long term (current) use of aspirin; Z79.899 Other long term (current) drug therapy
CPT/HCPCS: 36415; 71045; 80053; 85007; 85027; 85379; 85610; 85730; 86140; 87635; 93005; 94640; 96374; 99285; A9270; C9113; J8540; 93010; 99283; U0002

== ENCOUNTER 2020-09-17 09:28 | Emergency (ER) | payer BC ==
[2020-09-17 09:37] VITALS: BP 148/91; PULSE 86
[2020-09-17] MEDS ORDERED: Sodium Chloride 0.9% 10 ML Syringe FLUSH PRN (10:15)
--- NOTE | 2020-09-17 10:17 | EDM.PDOC ---
ED HPI GENERAL MEDICAL PROBLEM - General Chief Complaint: Genitourinary Problem Stated Complaint: KIDNEY PAIN Time Seen by Provider: 09/17/20 10:17 - History of Present Illness INITIAL COMMENTS - FREE TEXT/NARRATIVE: 49-year-old male presents the emergency room wondering if he has a kidney infection. Patient has not felt well the last several days, Friday night he had significant vomiting this has resolved and he is doing much better at this point but he noticed that his urine was very dark. He has been drinking lots of fluids yesterday and so far today. The patient's had a history of a kidney infection in the past where he did not really have typical symptoms. His nausea and vomiting is better he is not aware of any fevers or chills. He has a little bit of right-sided discomfort. But this does not seem to be too severe. Right Flank Pain Score (Numeric/FACES): 5 - Related Data Allergies Allergy/AdvReac Type Severity Reaction Status Date / Time pork derived (porcine) AdvReac Diarrhea Verified 09/17/20 09:34 Home Meds: Home Meds FLUoxetine HCl [Fluoxetine HCl] 40 mg PO DAILY 09/20/15 [History] Omeprazole 20 mg PO DAILY 09/20/15 [History] Aspirin 81 mg PO DAILY #30 tab.chew 09/21/15 [Rx] Acetaminophen/HYDROcodone [[place] 325-5 MG] 1 tab PO Q6H PRN #10 tablet 12/25/19 [Rx] dexAMETHasone [Dexamethasone] 4 mg PO BID #10 tab 12/25/19 [Rx] Past Medical History HEENT History: Reports: Impaired Vision Other HEENT History: Pt hard of hearing, wears hearing aids but are at home Cardiovascular History: Reports: High Cholesterol Other Cardiovascular History: Angioplasty Respiratory History: Reports: Pneumonia, Recurrent Other Respiratory History: pneumonia as a young child Gastrointestinal History: Reports: GERD Genitourinary History: Reports: UTI, Recurrent Other Genitourinary History: Serious UTI in college Musculoskeletal History: Reports: Back Pain, Chronic, Other (See Below) Other Musculoskeletal History: ankle surgery;disectomy Neurological History: Reports: Concussion Psychiatric History: Reports: Aggressive/Hostile Behaviors Other Psychiatric History: fluoxetine daily - Infectious Disease History Infectious Disease History: Reports: Chicken Pox, Measles - Past Surgical History GI Surgical History: Reports: Hernia Repair/Other Dermatological Surgical History: Reports: None Social & Family History - Family History Family Medical History: No Pertinent Family History Cardiac: Reports: UT Other Cardiac Family History: mother had a UT, father with quadrupel bypass surgery Oncologic: Reports: Leukemia Other Oncologic Family History: father and grandpa, many cousins with cancer - Tobacco Use Tobacco Use Status *Q: Former Tobacco User Years of Tobacco use: 15 Packs/Tins Daily: 1 Used Tobacco, but Quit: Yes Month/Year Tobacco Last Used: 2014 - Caffeine Use Caffeine Use: Reports: None - Recreational Drug Use Recreational Drug Use: No - Living Situation & Occupation Living situation: Reports: Occupation: Employed ED ROS GENERAL - Review of Systems Review Of Systems: See Below Constitutional: Reports: No Symptoms HEENT: Reports: No Symptoms Respiratory: Reports: No Symptoms Cardiovascular: Reports: No Symptoms GI/Abdominal: Reports: Diarrhea, Nausea, Vomiting, Other (His nausea vomiting and loose stools have resolved). Denies: Abdominal Pain, Constipation Musculoskeletal: Reports: No Symptoms Skin: Reports: No Symptoms Neurological: Reports: No Symptoms ED EXAM, GENERAL - Physical Exam Exam: See Below Exam Limited By: No Limitations General Appearance: Alert, No Apparent Distress Head: Atraumatic, Normocephalic Neck: Normal Inspection, Supple, Non-Tender, Full Range of Motion Respiratory/Chest: No Respiratory Distress, Lungs Clear, Normal Breath Sounds Cardiovascular: Regular Rate, Rhythm, No Edema, No Murmur GI/Abdominal: Normal Bowel Sounds, Soft, Other (No significant discomfort with palpation no rigidity rebound or guarding noted) Back Exam: Normal Inspection. No: CVA Tenderness (L), CVA Tenderness (R) Extremities: Normal Inspection, No Pedal Edema Neurological: Alert, Oriented, Normal Cognition Course - Vital Signs Last Recorded V/S: Last Vital Signs Temp 36.0 C L 09/17/20 09:35 Pulse 86 09/17/20 09:35 Resp 16 09/17/20 09:35 BP 148/91 H 09/17/20 09:35 Pulse Ox 96 09/17/20 09:35 - Orders/Labs/Meds Orders: Active Orders 24 hr Category Date Time Status Sodium Chloride 0.9% [Saline Flush] Med 09/17/20 10:15 Active 10 ml FLUSH ASDIRECTED PRN Saline Lock Insert [OM.PC] Routine Oth 09/17/20 10:15 Ordered Medication Orders Sodium Chloride (Sodium Chloride 0.9% 10 Ml Syringe) 10 ml FLUSH ASDIRECTED PRN PRN Reason: Keep Vein Open Last Admin: 09/17/20 10:17 Dose: 10 ml Documented by: ONUR Labs: Laboratory Tests 09/17/20 09/17/20 09/17/20 Range/Units 09:45 09:45 10:25 WBC 5.47 (4.23-9.07) K/mm3 RBC 5.94 (4.63-6.08) M/mm3 Hgb 17.2 D (13.7-17.5) gm/dl Hct 49.3 (40.1-51.0) % MCV 83.0 (79.0-92.2) fl MCH 29.0 (25.7-32.2) pg MCHC 34.9 (32.2-35.5) g/dl RDW Std Deviation 40.1 (35.1-43.9) fL Plt Count 174 (163-337) K/mm3 MPV 9.2 L (9.4-12.3) fl Neutrophils % (Manual) 69 H (40-60) % Band Neutrophils % 2 (0-10) % Lymphocytes % (Manual) 16 L (20-40) % Atypical Lymphs % 3 % Monocytes % (Manual) 9 (2-10) % Eosinophils % (Manual) 0 L (0.8-7.0) % Basophils % (Manual) 1 (0.2-1.2) Platelet Estimate Adequate Plt Morphology Comment Normal RBC Morph Comment Normal Sodium 140 (136-145) mEq/L Potassium 4.0 (3.5-5.1) mEq/L Chloride 104 (98-107) mEq/L Carbon Dioxide 23 (21-32) mEq/L Anion Gap 17.0 H (5-15) BUN 19 H (7-18) mg/dL Creatinine 1.1 (0.7-1.3) mg/dL Est Cr Clr Drug Dosing 80.34 mL/min Estimated GFR (MDRD) > 60 (>60) mL/min BUN/Creatinine Ratio 17.3 (14-18) Glucose 119 H (70-99) mg/dL Calcium 8.5 (8.5-10.1) mg/dL Total Bilirubin 0.8 (0.2-1.0) mg/dL AST 42 H (15-37) U/L ALT 76 H (16-63) U/L Alkaline Phosphatase 107 (46-116) U/L Total Protein 7.3 (6.4-8.2) g/dl Albumin 3.7 (3.4-5.0) g/dl Globulin 3.6 gm/dL Albumin/Globulin Ratio 1.0 (1-2) Urine Color Yellow (Yellow) Urine Appearance Clear (Clear) Urine pH 5.5 (5.0-8.0) Ur Specific [place] > or = 1.030 (1.005-1.030) Urine Protein 1+ H (Negative) Urine Glucose (UA) 2+ H (Negative) Urine Ketones Negative (Negative) Urine Occult Blood Negative (Negative) Urine Nitrite Negative (Negative) Urine Bilirubin 1+ H (Negative) Urine Urobilinogen 1.0 (0.2-1.0) Ur Leukocyte Esterase Negative (Negative) Urine RBC 0-5 (0-5) /hpf Urine WBC 0-5 (0-5) /hpf Ur Epithelial Cells 5-10 H (0-5) /hpf Urine Bacteria Moderate H (FEW) /hpf Urine Mucus Many H (FEW) /hpf Meds: Medications Generic Name Dose Route Start Last Admin Trade Name Freq PRN Reason Stop Dose Admin Sodium Chloride 10 ml 09/17/20 10:15 09/17/20 10:17 Sodium Chloride 0.9% 10 Ml Syringe FLUSH 10 ml ASDIRECTED PRN Administration Keep Vein Open - Re-Assessments/Exams Free Text/Narrative Re-Assessment/Exam: 09/17/20 12:07 Labs are reviewed urinalysis is not strongly suggestive of UTI he is mildly contaminated but leukocyte esterase and nitrates are both negative. Chemistries show some mild dehydration and some mild transaminase elevation I suspect he had a viral gastroenteritis that triggered his nausea and vomiting the other night. I did discuss the possibility of a kidney stone which I think is highly unlikely given that his pain is minimal to nonexistent. However did advise him to return to the emergency room if he did develop significant discomfort. Departure - Departure Time of Disposition: 12:08 Disposition: Home, Self-Care 01 Clinical Impression: Mild dehydration - Discharge Information Referrals: Neetu Hoyt MD [Primary Care Provider] - Forms: ED Department Discharge Additional Instructions: Return to the emergency room with any questions problems or worsening symptoms. Push lots of fluids. Follow-up with your regular healthcare provider in about a week for recheck if needed. Sepsis Event Note (ED) - Evaluation Sepsis Screening Result: No Definite Risk - Focused Exam Vital Signs: Vital Signs Temp Pulse Resp BP Pulse Ox 09/17/20 09:35 36.0 C L 86 16 148/91 H 96 - My Orders Last 24 Hours: My Active Orders 09/17/20 10:15 Sodium Chloride 0.9% [Saline Flush] 10 ml FLUSH ASDIRECTED PRN Saline Lock Insert [OM.PC] Routine - Assessment/Plan Last 24 Hours: My Active Orders 09/17/20 10:15 Sodium Chloride 0.9% [Saline Flush] 10 ml FLUSH ASDIRECTED PRN Saline Lock Insert [OM.PC] Routine
== END 2020-09-17 12:20 | disposition home or self-care (01) ==
LOC: JD.ED 09:28
DX: E86.0 Dehydration (principal); K21.9 Gastro-esophageal reflux disease without esophagitis; Z87.891 Personal history of nicotine dependence; Z91.018 Allergy to other foods; Z79.82 Long term (current) use of aspirin; Z79.899 Other long term (current) drug therapy
CPT/HCPCS: 36415; 80053; 81001; 85007; 85027; 99284

== ENCOUNTER 2021-08-24 07:05 | Emergency (ER) | payer BC ==
[2021-08-24] MEDS ORDERED: HYDROmorphone 0.5 MG/0.5 ML Syringe IVPUSH ONE ×2 (09:11→11:40)
[2021-08-24] MEDS ORDERED: Sodium Chloride 0.9% 10 ML Syringe FLUSH PRN ×2 (09:11→09:26)
[2021-08-24] MEDS ORDERED: Iopamidol 612 MG/ML 100 ML Bottle IVPUSH ONE (09:26)
[2021-08-24] MEDS ORDERED: Iopamidol 612 MG/ML 50 ML SDV IVPUSH ONE (09:26)
[2021-08-24 10:14] LABS: ESTIMATED GFR > 60 mL/min (>60)
[2021-08-24 12:54] VITALS: BP 126/88; PULSE 82
== END 2021-08-24 12:15 | disposition home or self-care (01) ==
LOC: JD.ED 07:05
DX: S20.212A Contusion of left front wall of thorax, initial encounter (principal); M79.652 Pain in left thigh; M79.662 Pain in left lower leg; E78.00 Pure hypercholesterolemia, unspecified; K21.9 Gastro-esophageal reflux disease without esophagitis; Z86.16 Personal history of COVID-19; Z79.82 Long term (current) use of aspirin; Z79.899 Other long term (current) drug therapy; Z87.891 Personal history of nicotine dependence; V80.010A Animal-rider injured by fall from or being thrown from horse in noncollision accident, initial encounter; Y93.52 Activity, horseback riding
CPT/HCPCS: 36415; 71250; 74176; 80053; 83690; 85025; 96374; 96376; 99284; J1170; J3490

== ENCOUNTER 2022-05-01 11:50 | Emergency (ER) | payer OTHER, BC ==
[2022-05-01 12:11] VITALS: BP 137/83; PULSE 84
[2022-05-01] MEDS ORDERED: Ondansetron 4 MG/2 ML SDV IVPUSH ONE (14:22)
[2022-05-01] MEDS ORDERED: Morphine 4 MG/ML Syringe IVPUSH ONE (14:22)
[2022-05-01] MEDS ORDERED: Sodium Chloride 0.9% 10 ML Syringe FLUSH PRN (14:26)
[2022-05-01] MEDS ORDERED: Iopamidol 755 Mg/ML 100 ML Bottle IVPUSH ONE (14:26)
[2022-05-01] MEDS ORDERED: Iopamidol 612 MG/ML 100 ML Bottle IVPUSH ONE (14:28)
[2022-05-01] MEDS ORDERED: Sodium Chloride 0.9% 100 ML IV SCH (14:30)
[2022-05-01] MEDS: Sodium Chloride 0.9% 10 ML Syringe FLUSH PRN ×2 (14:50→16:12)
[2022-05-01] MEDS ORDERED: fentaNYL 100 MCG/2 ML SDV IVPUSH ONE ×2 (15:15→17:39)
[2022-05-01] MEDS ORDERED: Cyclobenzaprine 10 MG Tab PO ONE (15:24)
[2022-05-01] MEDS ORDERED: Ketorolac 30 MG/ML SDV IVPUSH ONE (15:25)
[2022-05-01] MEDS ORDERED: HYDROmorphone 1 MG/ML Syringe IVPUSH ONE (15:29)
== END 2022-05-01 19:30 | disposition home or self-care (01) ==
LOC: JD.ED 11:50
DX: S22.42XA Multiple fractures of ribs, left side, initial encounter for closed fracture (principal); Z91.041 Radiographic dye allergy status; Z91.018 Allergy to other foods; Z79.899 Other long term (current) drug therapy; Z79.82 Long term (current) use of aspirin; Z86.16 Personal history of COVID-19; V86.52XA Driver of snowmobile injured in nontraffic accident, initial encounter; Y92.410 Unspecified street and highway as the place of occurrence of the external cause
CPT/HCPCS: 36415; 71260; 74177; 80053; 83605; 85025; 96374; 96375; 96376; 99284; A9270; J1170; J1885; J2270; J2405; J3010; J3490; Q9967

== ENCOUNTER 2022-10-10 08:27 | Emergency (ER) | payer BC ==
[2022-10-10] MEDS ORDERED: Ketorolac 30 MG/ML SDV IM ONE (09:33)
[2022-10-10] MEDS ORDERED: Orphenadrine 100 MG Tab.ER PO ONE (09:34)
[2022-10-10 11:10] LABS: APPEARANCE,URINE CLEAR (Clear); BILIRUBIN,URINE NEGATIVE (Negative); COLOR,URINE YELLOW (Yellow); GLUCOSE,URINE 3+ (Negative); KETONES,URINE NEGATIVE (Negative); LEUKOCYTE ESTERASE,URINE NEGATIVE (Negative); NITRITE,URINE NEGATIVE (Negative); OCCULT BLOOD,URINE NEGATIVE (Negative); PROTEIN,URINE NEGATIVE (Negative); UROBILINOGEN,URINE 0.2 (0.2-1.0)
[2022-10-10] MEDS ORDERED: Gadobenate Dimeglumine 529 MG/ML 20 ML SDV IVPUSH ONE (11:57)
[2022-10-10] MEDS ORDERED: Sodium Chloride 0.9% 10 ML Syringe FLUSH SCH (12:00)
[2022-10-10] MEDS ORDERED: Morphine 4 MG/ML Syringe IVPUSH ONE (14:28)
[2022-10-10] MEDS ORDERED: Lactated Ringers 1,000 ML IV SCH (14:30)
[2022-10-10 14:55] VITALS: BP 111/80; PULSE 82
== END 2022-10-10 15:15 ==
LOC: JD.ED 08:27
DX: M51.26 Other intervertebral disc displacement, lumbar region (principal); K62.89 Other specified diseases of anus and rectum; E78.00 Pure hypercholesterolemia, unspecified; K21.9 Gastro-esophageal reflux disease without esophagitis; Z79.82 Long term (current) use of aspirin; Z79.899 Other long term (current) drug therapy
CPT/HCPCS: 72158; 81003; 96372; 96374; 99285; A9270; A9577; J1885; J2270; J3490; J7120; 72148

== ENCOUNTER 2023-11-22 20:09 | Emergency (ER) | payer BC ==
[2023-11-22] MEDS: Clindamycin HCl 150 MG Cap PO ONE (22:57)
[2023-11-22] MEDS: Amoxicillin/Clavulanate K 875-125 MG Tab PO ONE (22:57)
[2023-11-22 23:03] VITALS: BP 121/82; PULSE 63
== END 2023-11-22 21:57 | disposition home or self-care (01) ==
LOC: JD.ED 20:09
DX: L03.211 Cellulitis of face (principal); E78.00 Pure hypercholesterolemia, unspecified; K21.9 Gastro-esophageal reflux disease without esophagitis; Z86.16 Personal history of COVID-19; Z79.899 Other long term (current) drug therapy; Z79.82 Long term (current) use of aspirin; Z79.84 Long term (current) use of oral hypoglycemic drugs; Z91.018 Allergy to other foods; Z88.8 Allergy status to other drugs, medicaments and biological substances
CPT/HCPCS: 99283; A9270

== ENCOUNTER 2024-05-03 09:56 | Emergency (ER) | payer BC ==
[2024-05-03 11:28] VITALS: BP 134/88; PULSE 80
== END 2024-05-03 12:20 | disposition home or self-care (01) ==
LOC: JD.ED 09:56
DX: S43.401A Unspecified sprain of right shoulder joint, initial encounter (principal); K21.9 Gastro-esophageal reflux disease without esophagitis; E78.00 Pure hypercholesterolemia, unspecified; Z88.8 Allergy status to other drugs, medicaments and biological substances; Z91.041 Radiographic dye allergy status; Z79.82 Long term (current) use of aspirin; Z79.2 Long term (current) use of antibiotics; Z79.84 Long term (current) use of oral hypoglycemic drugs; Z79.899 Other long term (current) drug therapy; Z86.16 Personal history of COVID-19; X58.XXXA Exposure to other specified factors, initial encounter
CPT/HCPCS: 73030-26-RT; 73030-RT; 99283

== ENCOUNTER 2024-06-02 09:34 | Day surgery (SDC) | payer BC ==
[~2024-06-02 09:34] MED LIST: Bupivacaine 0.25% 10 ML SDV ONE; Sodium Chloride 0.9% 10 ML Syringe FLUSH PRN; Sodium Chloride 0.9% 10 ML Syringe FLUSH SCH
[2024-06-02] MEDS ORDERED: Lactated Ringers 1,000 ML IV ONE (09:35)
[2024-06-02] MEDS: Lactated Ringers 1,000 ML IV SCH (10:00)
[2024-06-02] MEDS ORDERED: fentaNYL 100 MCG/2 ML SDV ONE (11:41)
[2024-06-02] MEDS ORDERED: Rocuronium 50 MG/5 ML Vial ONE (11:41)
[2024-06-02] MEDS ORDERED: Dexamethasone 4 MG/ML 5 ML MDV ONE (11:41)
[2024-06-02] MEDS ORDERED: Midazolam 1 MG/ML 2 ML SDV ONE (11:41)
[2024-06-02] MEDS ORDERED: Ondansetron 4 MG/2 ML SDV ONE (11:41)
[2024-06-02] MEDS ORDERED: Propofol 200 MG/20 ML SDV ONE ×2 (11:41→13:17)
[2024-06-02] MEDS ORDERED: dexmedeTOMIDine HCl 200 MCG/2 ML SDV ONE (11:41)
[2024-06-02] MEDS ORDERED: Ropivacaine 0.5% 5 MG/ML 30 ML SDV ONE (11:43)
[2024-06-02] MEDS ORDERED: propofoL 500 MG/50 ML 50 ML ONE (12:42)
[2024-06-02] MEDS ORDERED: ceFAZolin 2 GM Vial ONE (12:46)
[2024-06-02] MEDS ORDERED: Phenylephrine 1% 10 MG/ML SDV ONE (12:55)
[2024-06-02] MEDS: EPINEPHrine 1 MG/ML SDV ONE (13:16)
[2024-06-02] MEDS ORDERED: Sugammadex Sodium 200 MG/2 ML VIAL IV ONE (13:34)
[2024-06-02 14:48] VITALS: PULSE 78
[2024-06-02 16:18] VITALS: BP 146/82
== END 2024-06-02 15:40 | disposition home or self-care (01) ==
LOC: JD.SDS 09:34
PROVIDERS: ATTEND Orthopaedic Surgery
DX: M75.102 Unspecified rotator cuff tear or rupture of left shoulder, not specified as traumatic (principal); M75.42 Impingement syndrome of left shoulder; M94.212 Chondromalacia, left shoulder; M75.22 Bicipital tendinitis, left shoulder; I10 Essential (primary) hypertension; K21.9 Gastro-esophageal reflux disease without esophagitis; E78.2 Mixed hyperlipidemia; E11.9 Type 2 diabetes mellitus without complications; Z79.84 Long term (current) use of oral hypoglycemic drugs; Z79.85 Long-term (current) use of injectable non-insulin antidiabetic drugs; Z79.899 Other long term (current) drug therapy; Z88.8 Allergy status to other drugs, medicaments and biological substances; Z91.041 Radiographic dye allergy status
CPT/HCPCS: 29826; 29827; C1713; J0171; J0690; J1100; J2250; J2371; J2405; J2704; J2795; J3010; J7120; 64415; J0665; J3490